=== PATIENT | female | born 1995 | race Caucasian/White ===

== ENCOUNTER → 2021-02-16 14:12 | Outpatient (CLI) | payer OTHER, SELFPAY ==
[2021-02-16 16:16] LABS: COVID19 -Nasal RAPID Negative (Negative)
== END ==
PROVIDERS: Visit Provider Physician Assistant
DX: Z20.822 Contact with and (suspected) exposure to COVID-19 (principal)
CPT/HCPCS: 87635

== ENCOUNTER 2021-02-19 10:44 | Day surgery (SDC) | payer OTHER, SELFPAY ==
[2021-02-19] VITALS (9 sets, daily range): BP systolic 120–143; BP diastolic 62–93; PULSE 63–124; RESP 9–18; TEMP 36.6–36.9; O2SAT 98–100; BMI 25.0
--- NOTE | 2021-02-19 10:57 | PM.PREOP ---
Pre-operative Note COVID-19 COVID-19 status: Negative Result date/Date tested (Pos, Neg/Pending): 02/16/21 Interval Note History & Physical reviewed/Exam performed by Physician: Yes Changes to H&P: No
--- NOTE | 2021-02-19 10:57 | PM.HP.1 ---
History of Present Illness History of Present Illness Date Patient Seen: 02/19/21 Time Patient Seen: 10:57 Chief complaint: SDC Narrative: 25-year-old female with a history of chronic tonsillitis and recurrence stones along with throat pain, presents for tonsillectomy and possible adenoidectomy. She was last seen by Dr. Bill jackson in clinic 01/14/2021, denies interval changes such as cough, cold, or fever. Meds Home Medications and Allergies Home Medications Medication Instructions Recorded Confirmed Type fexofenadine [Allergy Relief 180 mg PO DAILY 02/18/21 02/18/21 History (fexofenadine)] norgestimate-ethinyl estradiol 1 tab PO DAILY 02/18/21 02/18/21 History [Tri-Sprintec (28)] Allergies Allergy/AdvReac Type Severity Reaction Status Date / Time loratadine AdvReac Intermediate Rash Verified 02/19/21 10:25 Review of Systems Review of Systems ROS: Yes All systems reviewed with the patient and are negative except as otherwise documented Exam Narrative Exam Narrative: Well-developed well-nourished female. Heart regular rate and rhythm without murmur, lungs clear to auscultation bilaterally Assessment & Plan Assessment & Plan narrative: Assessment: Chronic tonsillitis, tonsil stones, throat pain Plan: Following discussion of the material risks benefits complications and alternatives the patient elected to proceed with tonsillectomy and possible adenoidectomy as outpatient.
--- NOTE | 2021-02-19 11:00 | PM.OP.1 ---
Operative Date/Time/Diagnoses Date of procedure: 02/19/21 Time of procedure: 12:41 Pre-op diagnosis: Chronic tonsillitis, tonsil stones, throat pain Post-op diagnosis: same (Mild adenoid hypertrophy) Procedure & Clinicians Procedure: Tonsillectomy and adenoidectomy Same procedure as scheduled: Yes Indications: 25-year-old female with the above diagnoses incompletely managed with medical therapy presents for the above procedures. Following discussion of the material risks benefits complications and alternatives, she elected to proceed. Surgeon: Kaden Porter Click Yes if Unassisted: Yes Anesthesia Type: General and Local Operative Notes Findings: Intact palate, single uvula, 2+ tonsils with debris, friable, 1-2+ adenoids Closure Type: not applicable Specimen(s): none sent Estimated Blood Loss (mL): 20 Blood products transfused: none Procedure in detail: Following identification and confirmation of consent the patient was brought to the operating room suite and placed in the supine position. General endotracheal anesthesia was administered. A head wrap, shoulder roll, and mouth gag were placed and a red rubber catheter was inserted through the nostril and out the mouth to retract the soft palate. Partially obstructive adenoid tissue was ablated with suction electrocautery on a setting of 40, without injury to the eustachian tube orifices or choana. The left tonsil was retracted medially and suction electrocautery on a setting of 30 was used to dissect the tonsil in a subcapsular plane, followed by hemostasis with the same. This process was repeated on the right side with identical findings. The tonsillar fossae were superficially infiltrated bilaterally with a 1:1 mixture of 1% lidocaine 1 100,000 epinephrine and 0.25% Marcaine 1 to [id number] epinephrine. Mouth gag and rubber catheter were removed and the patient was extubated in the operating room and taken to the recovery room in stable condition without known complication. Complications: none Post-operative Condition: stable Disposition: same day surgery Plan for aftercare: Push fluids, 4 L daily if possible, soft diet 2 weeks, alternate Tylenol and Advil for baseline pain control, oxycodone for breakthrough pain
[2021-02-19] MEDS: LACTATED RINGERS 1,000 ML 42 ML IV (11:31)
--- NOTE | 2021-02-19 12:18 | SUR.OPER ---
Supine on padded OR bed, head on pillow, RIGHT AARM SECURED AT SIDE,LEFT ARM SECURED ON ARMBOARD., legs uncrossed, safety belt at thigh, tape over blanket over lower legs.
[2021-02-19] MEDS: LIDOCAINE 1% W/EPI 20 ML INJ (12:24)
[2021-02-19] MEDS: BUPIVACAINE 0.25% W/ EPI (PF) 10 ML VIAL 20 ML INJ (12:25)
[2021-02-19] MEDS: fentaNYL 100 MCG/2 ML INJ IV (13:05)
[2021-02-19] MEDS: OXYCODONE IR 5 MG TABLET PO ×2 (13:16→13:40)
== END 2021-02-19 13:50 | disposition home or self-care (01) ==
PROVIDERS: Referring Provider Otolaryngology; Visit Provider Otolaryngology
PROC: (CPT 42821; principal; 2021-02-19 11:45)
DX: J35.01 Chronic tonsillitis (principal); J35.8 Other chronic diseases of tonsils and adenoids
CPT/HCPCS: 42821; 81025; J1100; J2250; J2405; J2704; J3010

== ENCOUNTER 2022-02-25 07:30 | Outpatient (RCR) | payer OTHER, SELFPAY ==
--- NOTE | 2021-11-25 11:12 | PT.OIE ---
Current Diagnoses Pain in right shoulder (11/25/21) Other specified disorders of muscle (11/25/21) Abnormal posture (11/25/21) Past Medical History (Last Updated 02/19/21 @ 11:21 by Pauline Alford RN) History of removal of cyst (~2007) History of removal of cyst (~2012) [place] teeth removed (~2011) Past Surgical History (Last Updated 02/19/21 @ 11:22 by Pauline Alford RN) History of removal of cyst (~2007) History of removal of cyst (~2012) [place] teeth removed (~2011) Visit Care Team Role Provider Type Gary Nicole DO Attending Provider Non-Staff Family Provider Primary Care Provider Referring Provider Specialty: Medical Address: [address] [place] [address], [address], [address], [place], [address] Fax: Email: Physical Therapy Initial Evaluation PT-OP-A Visit Information Start: 11/18/21 07:35 Freq: Status: Active Protocol: Document 11/25/21 09:00 AMB (Rec: 11/25/21 10:50 AMB [id number]) Out-Patient Physical Therapy Visit Information Visit Information Visit Type Initial Evaluation Visit Start Time 09:00 Visit Stop Time 10:00 Total Visit Minutes 60 Visit Number 1 PT-OP-B Current Condition Start: 11/18/21 07:35 Freq: Status: Active Protocol: Document 11/25/21 09:07 AMB (Rec: 11/25/21 09:21 AMB [id number]) Current Condition History of Current Condition Onset Date January 2021 Current Complaints R scapular pain that radiates into neck and down arm History of Current Condition 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 Pain goes down the whole arm. Chiropractic helped, but now pain is coming back. Pain is worst along lateral aspect. Plays violin. RHD. Can feel arm/hand pain randomly, but when at computer or when at the jet. Bringing arm in towards the body seems to be somewhat relieving. Sharp pain, deniess numbness/tingling/ burning. Lidocaine patches, takes about a day for the pain to calm down after flying the jet. 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 Reaching/lifting/sleeping does not necessarily increase the pain. 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 PT-OP-J Posture/Palpation/Skin Start: 11/18/21 07:35 Freq: Status: Active Protocol: Document 11/25/21 09:00 AMB (Rec: 11/25/21 10:50 AMB [id number]) Posture Evaluation Comments Posture Comments Rounded shoulders and increased scapular winging on the right Palpation Assessment Location One Palpation Location R scapula Palpation Findings Spasm,Muscle Guarding, Tenderness,Trigger Point Palpation Details Trigger point over supraspinatus and infraspinatus that refer down the arm PT-OP-K Range of Motion Start: 11/18/21 07:35 Freq: Status: Active Protocol: Document 11/25/21 09:00 AMB (Rec: 11/25/21 10:50 AMB [id number]) Shoulder Goniometric Range of Motion Shoulder Left Active Shoulder ROM WFL Yes Testing Position Sitting Flexion 160 Abduction 180 Right Active Testing Position Sitting Flexion 145 Abduction 180 PT-OP-M Strength Start: 11/18/21 07:35 Freq: Status: Active Protocol: Document 11/25/21 09:00 AMB (Rec: 11/25/21 10:50 AMB [id number]) Shoulder Strength Shoulder Manual Muscle Testing Right Flexion 4+ Good+ Extension 5 Normal Abduction (C5) 4+ Good+ External Rotation 4+ Good+ Internal Rotation 4+ Good+ Left Flexion 5 Normal Extension 5 Normal Abduction (C5) 5 Normal External Rotation 5 Normal Internal Rotation 5 Normal Hand Benzene Worker/Pinch Strength Hand Dominance Hand Dominance Right Hand Strength Right Benzene Worker (lbs) 50 Left Benzene Worker (lbs) 50 PT-OP-Q Treatments Start: 11/18/21 07:35 Freq: Status: Active Protocol: Document 11/25/21 09:00 AMB (Rec: 11/25/21 10:50 AMB [id number]) Therapeutic Exercises Supine Exercises 1 Supine Exercise Name supine punch Reps/Minutes 10 Sidelying Exercises open book Reps/Minutes 10 Sitting Exercises levator scap stretch Reps/Minutes 30x2 Standing Exercises rows Resistance #3 t band Reps/Minutes 10 PT-OP-T Assessment and Plan Start: 11/18/21 07:35 Freq: Status: Active Protocol: Document 11/25/21 09:00 AMB (Rec: 11/25/21 11:09 AMB [id number]) Physical Therapy Assessment Rehab Potential Rehabilitation Potential Good Evaluation Complexity Number of Personal Factors/Comorbidities 0 Number of Body Systems Impaired 4 or More Clinical Presentation at Evaluation Stable Impairments Impairments Activity Tolerance,Pain, Posture,ROM Goals Two Impairment Pain Short Term Goal (STG) Lesley will sit at her desk for 30 minutes without an increase in her baseline pain. STG Duration 4 weeks Penitentiary Goal (LTG) Lesley will be independent with a HEP for scapular strengthening and stretching to manage her pain in the correction. LTG Duration 8 weeks One Impairment ROM Short Term Goal (STG) Lesley will improve her R shoulder AROM to 160 degrees. STG Duration 4 weeks Designer Goal (LTG) Lesley will have full R shoulder range without an increase in pain. LTG Duration 8 weeks Assessment Summary Assessment Lesley attends physical therapy with a 5 year history of right shoulder/scapular pain that radiates into her neck and down the ulnar aspect of her arm. She denies numbness/tingling, but does have scapular winging, forward shoulder posture, reduced ROM on the right. 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 She did have active trigger points and muscular tension throughout her right scapula and would benefit from physical therapy to improve her ROM, posture, strength, and ability to sit and work without pain. Physical Therapy Plan Frequency and Duration Frequency of Treatment 2x/Week Duration of Treatment 8 weeks Plan of Care Start Date 11/25/21 Plan of Care End Date 02/23/22 Therapeutic Interventions Therapeutic Interventions Home Exercise Program,Joint Mobilizations,Manual Therapy, Neuromuscular Re-education, Self-Care/Home Management, Therapeutic Activities, Therapeutic Exercises Modalities Cold Pack/Ice Massage,Electric Stimulation,Hot Packs, Ultrasound Next Visit Focus/Plan Next Note Type Treatment Note Next Visit Plan follow up on HEP: rows, open book, supine punch, levator scap stretch
--- NOTE | 2021-11-25 11:12 | PT.OPPOC ---
Physical, Occupational & Speech Therapy At [facility] Current Diagnoses Pain in right shoulder (11/25/21) Other specified disorders of muscle (11/25/21) Abnormal posture (11/25/21) Visit Care Team Role Provider Type Gary Nicole DO Attending Provider Non-Staff Family Provider Primary Care Provider Referring Provider Specialty: Medical Address: [address] [place] [address], [address], [address], [place], [address] Fax: Email: Plan Of Care PT-OP-T Assessment and Plan Start: 11/18/21 07:35 Freq: Status: Active Protocol: Document 11/25/21 09:00 AMB (Rec: 11/25/21 11:09 AMB [id number]) Physical Therapy Assessment Rehab Potential Rehabilitation Potential Good Evaluation Complexity Number of Personal Factors/Comorbidities 0 Number of Body Systems Impaired 4 or More Clinical Presentation at Evaluation Stable Impairments Impairments Activity Tolerance,Pain, Posture,ROM Goals Two Impairment Pain Short Term Goal (STG) Lesley will sit at her desk for 30 minutes without an increase in her baseline pain. STG Duration 4 weeks Benefit Director Goal (LTG) Lesley will be independent with a HEP for scapular strengthening and stretching to manage her pain in the residential. LTG Duration 8 weeks One Impairment ROM Short Term Goal (STG) Lesley will improve her R shoulder AROM to 160 degrees. STG Duration 4 weeks Benefit Director Goal (LTG) Lesley will have full R shoulder range without an increase in pain. LTG Duration 8 weeks Assessment Summary Assessment Lesley attends physical therapy with a 5 year history of right shoulder/scapular pain that radiates into her neck and down the ulnar aspect of her arm. She denies numbness/tingling, but does have scapular winging, forward shoulder posture, reduced ROM on the right. 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 She did have active trigger points and muscular tension throughout her right scapula and would benefit from physical therapy to improve her ROM, posture, strength, and ability to sit and work without pain. Physical Therapy Plan Frequency and Duration Frequency of Treatment 2x/Week Duration of Treatment 8 weeks Plan of Care Start Date 11/25/21 Plan of Care End Date 01/20/22 Therapeutic Interventions Therapeutic Interventions Home Exercise Program,Joint Mobilizations,Manual Therapy, Neuromuscular Re-education, Self-Care/Home Management, Therapeutic Activities, Therapeutic Exercises Modalities Cold Pack/Ice Massage,Electric Stimulation,Hot Packs, Ultrasound Next Visit Focus/Plan Next Note Type Treatment Note Next Visit Plan follow up on HEP: rows, open book, supine punch, levator scap stretch Plan of Care Dates Plan of Care Start Date 11/25/21 Plan of Care End Date 01/20/22 Electronically Signed by: Rowena Barrios, PT 11/25/21 1021 Please Sign and Return: I have reviewed this Plan of Care and certify that the skilled therapy services above are required to meet the patient?s needs. Physician Signature Date Printed Name and Credentials Clinical Instructor Signature Printed Name and Credentials
--- NOTE | 2021-12-09 14:18 | PT.OTN ---
Current Diagnoses Pain in right shoulder (12/09/21) Other specified disorders of muscle (12/09/21) Abnormal posture (12/09/21) Physical Therapy Treatment Note PT-OP-A Visit Information Start: 11/18/21 07:35 Freq: Status: Active Protocol: Document 12/09/21 09:00 AMB (Rec: 12/09/21 09:59 AMB [id number]) Out-Patient Physical Therapy Visit Information Visit Information Visit Type Treatment Note Visit Start Time 09:00 Visit Stop Time 09:45 Total Visit Minutes 45 Visit Number 2 PT-OP-B Current Condition Start: 11/18/21 07:35 Freq: Status: Active Protocol: Document 11/25/21 09:07 AMB (Rec: 11/25/21 09:21 AMB [id number]) Current Condition History of Current Condition Onset Date January 2021 Current Complaints R scapular pain that radiates into neck and down arm History of Current Condition 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 Pain goes down the whole arm. Chiropractic helped, but now pain is coming back. Pain is worst along lateral aspect. Plays violin. RHD. Can feel arm/hand pain randomly, but when at computer or when at the jet. Bringing arm in towards the body seems to be somewhat relieving. Sharp pain, deniess numbness/tingling/ burning. Lidocaine patches, takes about a day for the pain to calm down after flying the jet. 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 Reaching/lifting/sleeping does not necessarily increase the pain. 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 She has been on vacation though and is flying for the first time today. PT-OP-J Posture/Palpation/Skin Start: 11/18/21 07:35 Freq: Status: Active Protocol: Document 11/25/21 09:00 AMB (Rec: 11/25/21 10:50 AMB [id number]) Posture Evaluation Comments Posture Comments Rounded shoulders and increased scapular winging on the right Palpation Assessment Location One Palpation Location R scapula Palpation Findings Spasm,Muscle Guarding, Tenderness,Trigger Point Palpation Details Trigger point over supraspinatus and infraspinatus that refer down the arm PT-OP-K Range of Motion Start: 11/18/21 07:35 Freq: Status: Active Protocol: Document 11/25/21 09:00 AMB (Rec: 11/25/21 10:50 AMB [id number]) Shoulder Goniometric Range of Motion Shoulder Left Active Shoulder ROM WFL Yes Testing Position Sitting Flexion 160 Abduction 180 Right Active Testing Position Sitting Flexion 145 Abduction 180 PT-OP-M Strength Start: 11/18/21 07:35 Freq: Status: Active Protocol: Document 11/25/21 09:00 AMB (Rec: 11/25/21 10:50 AMB [id number]) Shoulder Strength Shoulder Manual Muscle Testing Right Flexion 4+ Good+ Extension 5 Normal Abduction (C5) 4+ Good+ External Rotation 4+ Good+ Internal Rotation 4+ Good+ Left Flexion 5 Normal Extension 5 Normal Abduction (C5) 5 Normal External Rotation 5 Normal Internal Rotation 5 Normal Hand Dining Car Waiter/Waitress/Pinch Strength Hand Dominance Hand Dominance Right Hand Strength Right Dining Car Waiter/Waitress (lbs) 50 Left Dining Car Waiter/Waitress (lbs) 50 PT-OP-Q Treatments Start: 11/18/21 07:35 Freq: Status: Active Protocol: Document 12/09/21 09:00 AMB (Rec: 12/09/21 14:17 AMB [id number]) Therapeutic Exercises Supine Exercises 1 Supine Exercise Name supine punch Reps/Minutes 10 Sidelying Exercises open book Reps/Minutes 10 Sitting Exercises levator scap stretch Reps/Minutes 30x2 Other Exercises 1 Other Exercise Name thread the needle Comments quadruped Manual Therapy Treatment Soft Tissue Mobilization 1 Body Location infraspinatus, suscapularis, rhomboids Mobilization Type Myofascial Release,Trigger Point Release Intensity/Depth Moderate Body Position Sidelying Joint Mobilizations 1 Joint scapulothoracic Direction all planes Grade III PT-OP-R Modalities Start: 12/09/21 14:17 Freq: Status: Active Protocol: Document 12/09/21 09:00 AMB (Rec: 12/09/21 14:18 AMB [id number]) Electric Stimulation Electric Stimulation Interferential Current (IFC) Body Location R scapula Duration (Minutes) 10 PT-OP-T Assessment and Plan Start: 11/18/21 07:35 Freq: Status: Active Protocol: Document 12/09/21 09:00 AMB (Rec: 12/09/21 14:17 AMB [id number]) Physical Therapy Assessment Assessment Summary Assessment Lesley had signficant tightness at subscapularis and TrP release did radiate pain down the arm. Recheck how her sx were after flying. Physical Therapy Plan Next Visit Focus/Plan Next Note Type Treatment Note Next Visit Plan follow up on HEP: rows, open book, supine punch, levator scap stretch- progress strengthening follow up on
--- NOTE | 2021-12-11 11:49 | PT.OTN ---
Current Diagnoses Pain in right shoulder (12/11/21) Other specified disorders of muscle (12/11/21) Abnormal posture (12/11/21) Physical Therapy Treatment Note PT-OP-A Visit Information Start: 11/18/21 07:35 Freq: Status: Active Protocol: Document 12/11/21 09:00 AMB (Rec: 12/11/21 09:21 AMB [id number]) Out-Patient Physical Therapy Visit Information Visit Information Visit Type Treatment Note Visit Start Time 09:00 Visit Stop Time 09:45 Total Visit Minutes 45 Visit Number 3 PT-OP-B Current Condition Start: 11/18/21 07:35 Freq: Status: Active Protocol: Document 11/25/21 09:07 AMB (Rec: 11/25/21 09:21 AMB [id number]) Current Condition History of Current Condition Onset Date January 2021 Current Complaints R scapular pain that radiates into neck and down arm History of Current Condition 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 Pain goes down the whole arm. Chiropractic helped, but now pain is coming back. Pain is worst along lateral aspect. Plays violin. RHD. Can feel arm/hand pain randomly, but when at computer or when at the jet. Bringing arm in towards the body seems to be somewhat relieving. Sharp pain, deniess numbness/tingling/ burning. Lidocaine patches, takes about a day for the pain to calm down after flying the jet. 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 Reaching/lifting/sleeping does not necessarily increase the pain. 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 PT-OP-J Posture/Palpation/Skin Start: 11/18/21 07:35 Freq: Status: Active Protocol: Document 11/25/21 09:00 AMB (Rec: 11/25/21 10:50 AMB [id number]) Posture Evaluation Comments Posture Comments Rounded shoulders and increased scapular winging on the right Palpation Assessment Location One Palpation Location R scapula Palpation Findings Spasm,Muscle Guarding, Tenderness,Trigger Point Palpation Details Trigger point over supraspinatus and infraspinatus that refer down the arm PT-OP-K Range of Motion Start: 11/18/21 07:35 Freq: Status: Active Protocol: Document 11/25/21 09:00 AMB (Rec: 11/25/21 10:50 AMB [id number]) Shoulder Goniometric Range of Motion Shoulder Left Active Shoulder ROM WFL Yes Testing Position Sitting Flexion 160 Abduction 180 Right Active Testing Position Sitting Flexion 145 Abduction 180 PT-OP-M Strength Start: 11/18/21 07:35 Freq: Status: Active Protocol: Document 11/25/21 09:00 AMB (Rec: 11/25/21 10:50 AMB [id number]) Shoulder Strength Shoulder Manual Muscle Testing Right Flexion 4+ Good+ Extension 5 Normal Abduction (C5) 4+ Good+ External Rotation 4+ Good+ Internal Rotation 4+ Good+ Left Flexion 5 Normal Extension 5 Normal Abduction (C5) 5 Normal External Rotation 5 Normal Internal Rotation 5 Normal Hand Area Supervisor/Pinch Strength Hand Dominance Hand Dominance Right Hand Strength Right Area Supervisor (lbs) 50 Left Area Supervisor (lbs) 50 PT-OP-Q Treatments Start: 11/18/21 07:35 Freq: Status: Active Protocol: Document 12/11/21 09:00 AMB (Rec: 12/11/21 11:48 AMB [id number]) Cardio Equipment Upper Body Ergometer (UBE) Duration (Minutes) 6 Other fwd backward Therapeutic Exercises Standing Exercises ER Standing Exercise Name t band Resistance #3 Reps/Minutes 2x10 shldr ext Standing Exercise Name t band Resistance #3 Reps/Minutes 2x10 rows Resistance #3 t band Reps/Minutes 10 Manual Therapy Treatment Soft Tissue Mobilization 1 Body Location infraspinatus, subscapularis, rhomboids Mobilization Type Myofascial Release,Trigger Point Release Intensity/Depth Moderate Body Position Sidelying PT-OP-R Modalities Start: 12/09/21 14:17 Freq: Status: Active Protocol: Document 12/11/21 09:00 AMB (Rec: 12/11/21 11:48 AMB [id number]) Electric Stimulation Electric Stimulation Interferential Current (IFC) Body Location R scapula Duration (Minutes) 15 Combined With Heat/Cold Hot Pack PT-OP-T Assessment and Plan Start: 11/18/21 07:35 Freq: Status: Active Protocol: Document 12/11/21 09:00 AMB (Rec: 12/11/21 11:48 AMB [id number]) Physical Therapy Assessment Goals Two Impairment Pain Short Term Goal (STG) Lesley will sit at her desk for 30 minutes without an increase in her baseline pain. STG Duration 4 weeks Maternal Child Nurse Goal (LTG) Lesley will be independent with a HEP for scapular strengthening and stretching to manage her pain in the [place]. LTG Duration 8 weeks One Impairment ROM Short Term Goal (STG) Lesley will improve her R shoulder AROM to 160 degrees. STG Duration 4 weeks Maternal Child Nurse Goal (LTG) Lesley will have full R shoulder range without an increase in pain. LTG Duration 8 weeks Assessment Summary Assessment Less tightness in scapular muscles, but continued TrP at rhomboids and infraspinatus today. Pt tolerated all exercises well, except for shoulder extension which radiated discomfort into her upper arm. Physical Therapy Plan Next Visit Focus/Plan Next Note Type Treatment Note Next Visit Plan follow up on HEP: rows, open book, supine punch, levator scap stretch- progress strengthening follow up on shoulder ER t band exercise
--- NOTE | 2021-12-16 11:35 | PT.OTN ---
Current Diagnoses Pain in right shoulder (12/16/21) Other specified disorders of muscle (12/16/21) Abnormal posture (12/16/21) Physical Therapy Treatment Note PT-OP-A Visit Information Start: 11/18/21 07:35 Freq: Status: Active Protocol: Document 12/16/21 08:16 AMB (Rec: 12/16/21 09:45 AMB [id number]) Out-Patient Physical Therapy Visit Information Visit Information Visit Type Treatment Note Visit Start Time 08:15 Visit Stop Time 09:00 Total Visit Minutes 45 Visit Number 4 PT-OP-B Current Condition Start: 11/18/21 07:35 Freq: Status: Active Protocol: Document 11/25/21 09:07 AMB (Rec: 11/25/21 09:21 AMB [id number]) Current Condition History of Current Condition Onset Date January 2021 Current Complaints R scapular pain that radiates into neck and down arm History of Current Condition 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 Pain goes down the whole arm. Chiropractic helped, but now pain is coming back. Pain is worst along lateral aspect. Plays violin. RHD. Can feel arm/hand pain randomly, but when at computer or when at the jet. Bringing arm in towards the body seems to be somewhat relieving. Sharp pain, deniess numbness/tingling/ burning. Lidocaine patches, takes about a day for the pain to calm down after flying the jet. 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 Reaching/lifting/sleeping does not necessarily increase the pain. 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 PT-OP-J Posture/Palpation/Skin Start: 11/18/21 07:35 Freq: Status: Active Protocol: Document 11/25/21 09:00 AMB (Rec: 11/25/21 10:50 AMB [id number]) Posture Evaluation Comments Posture Comments Rounded shoulders and increased scapular winging on the right Palpation Assessment Location One Palpation Location R scapula Palpation Findings Spasm,Muscle Guarding, Tenderness,Trigger Point Palpation Details Trigger point over supraspinatus and infraspinatus that refer down the arm PT-OP-K Range of Motion Start: 11/18/21 07:35 Freq: Status: Active Protocol: Document 11/25/21 09:00 AMB (Rec: 11/25/21 10:50 AMB [id number]) Shoulder Goniometric Range of Motion Shoulder Left Active Shoulder ROM WFL Yes Testing Position Sitting Flexion 160 Abduction 180 Right Active Testing Position Sitting Flexion 145 Abduction 180 PT-OP-M Strength Start: 11/18/21 07:35 Freq: Status: Active Protocol: Document 11/25/21 09:00 AMB (Rec: 11/25/21 10:50 AMB [id number]) Shoulder Strength Shoulder Manual Muscle Testing Right Flexion 4+ Good+ Extension 5 Normal Abduction (C5) 4+ Good+ External Rotation 4+ Good+ Internal Rotation 4+ Good+ Left Flexion 5 Normal Extension 5 Normal Abduction (C5) 5 Normal External Rotation 5 Normal Internal Rotation 5 Normal Hand Naturopathic Doctor/Pinch Strength Hand Dominance Hand Dominance Right Hand Strength Right Naturopathic Doctor (lbs) 50 Left Naturopathic Doctor (lbs) 50 PT-OP-Q Treatments Start: 11/18/21 07:35 Freq: Status: Active Protocol: Document 12/16/21 11:30 AMB (Rec: 12/16/21 11:34 AMB [id number]) Cardio Equipment Upper Body Ergometer (UBE) Duration (Minutes) 6 Other fwd backward Therapeutic Exercises Standing Exercises PNF diagonals Standing Exercise Name D1 and D2 extension Resistance #3 t band Reps/Minutes 2x10 ER Standing Exercise Name t band Resistance #3 Reps/Minutes 2x10 rows Resistance #3 t band Reps/Minutes 10 Manual Therapy Treatment Soft Tissue Mobilization 1 Body Location infraspinatus, subscapularis, rhomboids Mobilization Type Myofascial Release,Trigger Point Release Intensity/Depth Moderate Body Position Sidelying Joint Mobilizations 1 Joint scapulothoracic Direction all planes Grade III PT-OP-R Modalities Start: 12/09/21 14:17 Freq: Status: Active Protocol: Document 12/16/21 11:30 AMB (Rec: 12/16/21 11:34 AMB [id number]) Electric Stimulation Electric Stimulation Interferential Current (IFC) Body Location R scapula Duration (Minutes) 15 Combined With Heat/Cold Hot Pack PT-OP-T Assessment and Plan Start: 11/18/21 07:35 Freq: Status: Active Protocol: Document 12/16/21 08:16 AMB (Rec: 12/16/21 09:45 AMB [id number]) Physical Therapy Assessment Goals Two Impairment Pain Short Term Goal (STG) Lesley will sit at her desk for 30 minutes without an increase in her baseline pain. STG Duration 4 weeks Usp Goal (LTG) Lesley will be independent with a HEP for scapular strengthening and stretching to manage her pain in the [facility]. LTG Duration 8 weeks One Impairment ROM Short Term Goal (STG) Lesley will improve her R shoulder AROM to 160 degrees. STG Duration 4 weeks Heel Seat Laster Goal (LTG) Lesley will have full R shoulder range without an increase in pain. LTG Duration 8 weeks Assessment Summary Assessment Lesley is tolerating progression of exercises well. Continued to have TrP in infraspinatus, but with less radiation today. Physical Therapy Plan Next Visit Focus/Plan Next Note Type Treatment Note Next Visit Plan follow up on HEP: rows, open book, supine punch, levator scap stretch- progress strengthening follow up on shoulder ER t band exercise
--- NOTE | 2021-12-21 16:16 | PT.OTN ---
Current Diagnoses Pain in right shoulder (12/21/21) Other specified disorders of muscle (12/21/21) Abnormal posture (12/21/21) Physical Therapy Treatment Note PT-OP-A Visit Information Start: 11/18/21 07:35 Freq: Status: Active Protocol: Document 12/21/21 07:30 AMB (Rec: 12/21/21 08:20 AMB [id number]) Out-Patient Physical Therapy Visit Information Visit Information Visit Type Initial Evaluation Visit Start Time 07:30 Visit Stop Time 08:15 Total Visit Minutes 45 Visit Number 5 PT-OP-B Current Condition Start: 11/18/21 07:35 Freq: Status: Active Protocol: Document 11/25/21 09:07 AMB (Rec: 11/25/21 09:21 AMB [id number]) Current Condition History of Current Condition Onset Date January 2021 Current Complaints R scapular pain that radiates into neck and down arm History of Current Condition 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 Pain goes down the whole arm. Chiropractic helped, but now pain is coming back. Pain is worst along lateral aspect. Plays violin. RHD. Can feel arm/hand pain randomly, but when at computer or when at the jet. Bringing arm in towards the body seems to be somewhat relieving. Sharp pain, deniess numbness/tingling/ burning. Lidocaine patches, takes about a day for the pain to calm down after flying the jet. 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 Reaching/lifting/sleeping does not necessarily increase the pain. 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 PT-OP-J Posture/Palpation/Skin Start: 11/18/21 07:35 Freq: Status: Active Protocol: Document 11/25/21 09:00 AMB (Rec: 11/25/21 10:50 AMB [id number]) Posture Evaluation Comments Posture Comments Rounded shoulders and increased scapular winging on the right Palpation Assessment Location One Palpation Location R scapula Palpation Findings Spasm,Muscle Guarding, Tenderness,Trigger Point Palpation Details Trigger point over supraspinatus and infraspinatus that refer down the arm PT-OP-K Range of Motion Start: 11/18/21 07:35 Freq: Status: Active Protocol: Document 11/25/21 09:00 AMB (Rec: 11/25/21 10:50 AMB [id number]) Shoulder Goniometric Range of Motion Shoulder Left Active Shoulder ROM WFL Yes Testing Position Sitting Flexion 160 Abduction 180 Right Active Testing Position Sitting Flexion 145 Abduction 180 PT-OP-M Strength Start: 11/18/21 07:35 Freq: Status: Active Protocol: Document 11/25/21 09:00 AMB (Rec: 11/25/21 10:50 AMB [id number]) Shoulder Strength Shoulder Manual Muscle Testing Right Flexion 4+ Good+ Extension 5 Normal Abduction (C5) 4+ Good+ External Rotation 4+ Good+ Internal Rotation 4+ Good+ Left Flexion 5 Normal Extension 5 Normal Abduction (C5) 5 Normal External Rotation 5 Normal Internal Rotation 5 Normal Hand Land Law Examiner/Pinch Strength Hand Dominance Hand Dominance Right Hand Strength Right Land Law Examiner (lbs) 50 Left Land Law Examiner (lbs) 50 PT-OP-Q Treatments Start: 11/18/21 07:35 Freq: Status: Active Protocol: Document 12/21/21 07:30 AMB (Rec: 12/21/21 16:15 AMB [id number]) Cardio Equipment Upper Body Ergometer (UBE) Duration (Minutes) 6 Other fwd backward Therapeutic Exercises Standing Exercises 1 Standing Exercise Name ulnar nerve glides Reps/Minutes 10 PNF diagonals Standing Exercise Name D1 and D2 extension Resistance #3 t band Reps/Minutes 2x10 ER Standing Exercise Name t band Resistance #3 Reps/Minutes 2x10 rows Resistance #3 t band Reps/Minutes 10 Manual Therapy Treatment Soft Tissue Mobilization 1 Body Location infraspinatus, subscapularis, rhomboids Mobilization Type Myofascial Release,Trigger Point Release Intensity/Depth Moderate Body Position Sidelying Joint Mobilizations 1 Joint scapulothoracic Direction all planes Grade III PT-OP-R Modalities Start: 12/09/21 14:17 Freq: Status: Active Protocol: Document 12/21/21 07:30 AMB (Rec: 12/21/21 16:16 AMB [id number]) Electric Stimulation Electric Stimulation Interferential Current (IFC) Body Location R scapula Duration (Minutes) 15 Combined With Heat/Cold Hot Pack PT-OP-T Assessment and Plan Start: 11/18/21 07:35 Freq: Status: Active Protocol: Document 12/21/21 07:30 AMB (Rec: 12/21/21 16:15 AMB [id number]) Physical Therapy Assessment Goals Two Impairment Pain Short Term Goal (STG) Lesley will sit at her desk for 30 minutes without an increase in her baseline pain. 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 LTG Duration 8 weeks One Impairment ROM Short Term Goal (STG) Lesley will improve her R shoulder AROM to 160 degrees. STG Duration 4 weeks Sawmill Worker Goal (LTG) Lesley will have full R shoulder range without an increase in pain. LTG Duration 8 weeks Assessment Summary Assessment Lesley is doing well with exercise today. will need to follow up on ulnar nerve glides. Physical Therapy Plan Next Visit Focus/Plan Next Note Type Treatment Note Next Visit Plan follow up on HEP: rows, open book, supine punch, levator scap stretch- progress strengthening follow up on shoulder ER t band exercise
--- NOTE | 2021-12-23 15:15 | PT.OTN ---
Current Diagnoses Pain in right shoulder (12/23/21) Other specified disorders of muscle (12/23/21) Abnormal posture (12/23/21) Physical Therapy Treatment Note PT-OP-A Visit Information Start: 11/18/21 07:35 Freq: Status: Active Protocol: Document 12/23/21 07:30 AMB (Rec: 12/23/21 08:21 AMB [id number]) Out-Patient Physical Therapy Visit Information Visit Information Visit Type Treatment Note Visit Start Time 07:30 Visit Stop Time 08:15 Total Visit Minutes 45 Visit Number 6 PT-OP-B Current Condition Start: 11/18/21 07:35 Freq: Status: Active Protocol: Document 11/25/21 09:07 AMB (Rec: 11/25/21 09:21 AMB [id number]) Current Condition History of Current Condition Onset Date January 2021 Current Complaints R scapular pain that radiates into neck and down arm History of Current Condition 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 Pain goes down the whole arm. Chiropractic helped, but now pain is coming back. Pain is worst along lateral aspect. Plays violin. RHD. Can feel arm/hand pain randomly, but when at computer or when at the jet. Bringing arm in towards the body seems to be somewhat relieving. Sharp pain, deniess numbness/tingling/ burning. Lidocaine patches, takes about a day for the pain to calm down after flying the jet. 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 Reaching/lifting/sleeping does not necessarily increase the pain. 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 Subjective Start: 11/18/21 07:35 Freq: Status: Active Protocol: Document 12/23/21 07:30 AMB (Rec: 12/23/21 08:21 AMB [id number]) OP-PT Subjective Patient Comments Patient Comments Pt woke up with some nerve tension in my elbow PT-OP-J Posture/Palpation/Skin Start: 11/18/21 07:35 Freq: Status: Active Protocol: Document 11/25/21 09:00 AMB (Rec: 11/25/21 10:50 AMB [id number]) Posture Evaluation Comments Posture Comments Rounded shoulders and increased scapular winging on the right Palpation Assessment Location One Palpation Location R scapula Palpation Findings Spasm,Muscle Guarding, Tenderness,Trigger Point Palpation Details Trigger point over supraspinatus and infraspinatus that refer down the arm PT-OP-K Range of Motion Start: 11/18/21 07:35 Freq: Status: Active Protocol: Document 11/25/21 09:00 AMB (Rec: 11/25/21 10:50 AMB [id number]) Shoulder Goniometric Range of Motion Shoulder Left Active Shoulder ROM WFL Yes Testing Position Sitting Flexion 160 Abduction 180 Right Active Testing Position Sitting Flexion 145 Abduction 180 PT-OP-M Strength Start: 11/18/21 07:35 Freq: Status: Active Protocol: Document 11/25/21 09:00 AMB (Rec: 11/25/21 10:50 AMB [id number]) Shoulder Strength Shoulder Manual Muscle Testing Right Flexion 4+ Good+ Extension 5 Normal Abduction (C5) 4+ Good+ External Rotation 4+ Good+ Internal Rotation 4+ Good+ Left Flexion 5 Normal Extension 5 Normal Abduction (C5) 5 Normal External Rotation 5 Normal Internal Rotation 5 Normal Hand Appraiser Timber/Pinch Strength Hand Dominance Hand Dominance Right Hand Strength Right Appraiser Timber (lbs) 50 Left Appraiser Timber (lbs) 50 PT-OP-Q Treatments Start: 11/18/21 07:35 Freq: Status: Active Protocol: Document 12/23/21 07:30 AMB (Rec: 12/23/21 08:21 AMB [id number]) Cardio Equipment Upper Body Ergometer (UBE) Duration (Minutes) 6 Other fwd backward Therapeutic Exercises Sidelying Exercises open book Reps/Minutes 10 Sitting Exercises levator scap stretch Reps/Minutes 30x2 Other Exercises 1 Other Exercise Name thread the needle Comments quadruped Manual Therapy Treatment Soft Tissue Mobilization 1 Body Location infraspinatus, subscapularis, rhomboids Mobilization Type Myofascial Release,Trigger Point Release Intensity/Depth Moderate Body Position Sidelying Joint Mobilizations 1 Joint scapulothoracic Direction all planes Grade III PT-OP-R Modalities Start: 12/09/21 14:17 Freq: Status: Active Protocol: Document 12/21/21 07:30 AMB (Rec: 12/21/21 16:16 AMB [id number]) Electric Stimulation Electric Stimulation Interferential Current (IFC) Body Location R scapula Duration (Minutes) 15 Combined With Heat/Cold Hot Pack PT-OP-T Assessment and Plan Start: 11/18/21 07:35 Freq: Status: Active Protocol: Document 12/23/21 07:30 AMB (Rec: 12/23/21 08:21 [facility] [id number]) Physical Therapy Assessment Goals Two Impairment Pain Short Term Goal (STG) Lesley will sit at her desk for 30 minutes without an increase in her baseline pain. 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 LTG Duration 8 weeks One Impairment ROM Short Term Goal (STG) Lesley will improve her R shoulder AROM to 160 degrees. STG Duration 4 weeks Cementer Machine Applicator Goal (LTG) Lesley will have full R shoulder range without an increase in pain. LTG Duration 8 weeks Assessment Summary Assessment Lesley had extra discomfort and stiffness in her scapula and posterior shoulder today, discussed set up of typing and sleeping today. Physical Therapy Plan Next Visit Focus/Plan Next Note Type Treatment Note Next Visit Plan follow up on HEP: rows, open book, supine punch, levator scap stretch- progress strengthening follow up on shoulder ER t band exercise
--- NOTE | 2021-12-28 09:43 | PT.OTN ---
Current Diagnoses Pain in right shoulder (12/28/21) Other specified disorders of muscle (12/28/21) Abnormal posture (12/28/21) Physical Therapy Treatment Note PT-OP-A Visit Information Start: 11/18/21 07:35 Freq: Status: Active Protocol: Document 12/28/21 07:30 AMB (Rec: 12/28/21 08:33 AMB [id number]) Out-Patient Physical Therapy Visit Information Visit Information Visit Type Treatment Note Visit Start Time 07:30 Visit Stop Time 08:15 Total Visit Minutes 45 Visit Number 7 PT-OP-B Current Condition Start: 11/18/21 07:35 Freq: Status: Active Protocol: Document 11/25/21 09:07 AMB (Rec: 11/25/21 09:21 AMB [id number]) Current Condition History of Current Condition Onset Date January 2021 Current Complaints R scapular pain that radiates into neck and down arm History of Current Condition 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 Pain goes down the whole arm. Chiropractic helped, but now pain is coming back. Pain is worst along lateral aspect. Plays violin. RHD. Can feel arm/hand pain randomly, but when at computer or when at the jet. Bringing arm in towards the body seems to be somewhat relieving. Sharp pain, deniess numbness/tingling/ burning. Lidocaine patches, takes about a day for the pain to calm down after flying the jet. 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 Reaching/lifting/sleeping does not necessarily increase the pain. 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 Was able to spend a lot of time typing on the computer PT-OP-J Posture/Palpation/Skin Start: 11/18/21 07:35 Freq: Status: Active Protocol: Document 11/25/21 09:00 AMB (Rec: 11/25/21 10:50 AMB [id number]) Posture Evaluation Comments Posture Comments Rounded shoulders and increased scapular winging on the right Palpation Assessment Location One Palpation Location R scapula Palpation Findings Spasm,Muscle Guarding, Tenderness,Trigger Point Palpation Details Trigger point over supraspinatus and infraspinatus that refer down the arm PT-OP-K Range of Motion Start: 11/18/21 07:35 Freq: Status: Active Protocol: Document 11/25/21 09:00 AMB (Rec: 11/25/21 10:50 AMB [id number]) Shoulder Goniometric Range of Motion Shoulder Left Active Shoulder ROM WFL Yes Testing Position Sitting Flexion 160 Abduction 180 Right Active Testing Position Sitting Flexion 145 Abduction 180 PT-OP-M Strength Start: 11/18/21 07:35 Freq: Status: Active Protocol: Document 11/25/21 09:00 AMB (Rec: 11/25/21 10:50 AMB [id number]) Shoulder Strength Shoulder Manual Muscle Testing Right Flexion 4+ Good+ Extension 5 Normal Abduction (C5) 4+ Good+ External Rotation 4+ Good+ Internal Rotation 4+ Good+ Left Flexion 5 Normal Extension 5 Normal Abduction (C5) 5 Normal External Rotation 5 Normal Internal Rotation 5 Normal Hand Picture Enlarger/Pinch Strength Hand Dominance Hand Dominance Right Hand Strength Right Picture Enlarger (lbs) 50 Left Picture Enlarger (lbs) 50 PT-OP-Q Treatments Start: 11/18/21 07:35 Freq: Status: Active Protocol: Document 12/28/21 07:30 AMB (Rec: 12/28/21 09:43 AMB [id number]) Cardio Equipment Upper Body Ergometer (UBE) Duration (Minutes) 7 Other fwd backward Therapeutic Exercises Sidelying Exercises open book Reps/Minutes 10 Standing Exercises doorway pec stretch Comments time spent modifying to avoid nerve sx rows Resistance #3 t band Reps/Minutes 2x10 Manual Therapy Treatment Soft Tissue Mobilization 1 Body Location infraspinatus, subscapularis, rhomboids Mobilization Type Myofascial Release,Trigger Point Release Intensity/Depth Moderate Body Position Sidelying Comments with shoulder PROM working on flexion PT-OP-R Modalities Start: 12/09/21 14:17 Freq: Status: Active Protocol: Document 12/28/21 07:30 AMB (Rec: 12/28/21 09:43 AMB [id number]) Electric Stimulation Electric Stimulation Interferential Current (IFC) Body Location R scapula Duration (Minutes) 15 Combined With Heat/Cold Hot Pack PT-OP-T Assessment and Plan Start: 11/18/21 07:35 Freq: Status: Active Protocol: Document 12/28/21 07:30 AMB (Rec: 12/28/21 09:43 AMB [id number]) Physical Therapy Assessment Goals Two Impairment Pain Short Term Goal (STG) Lesley will sit at her desk for 30 minutes without an increase in her baseline pain. STG Duration 4 weeks Manager Custom Goal (LTG) Lesley will be independent with a HEP for scapular strengthening and stretching to manage her pain in the manager long term care. LTG Duration 8 weeks One Impairment ROM Short Term Goal (STG) Lesley will improve her R shoulder AROM to 160 degrees. STG Duration 4 weeks Custodial Goal (LTG) Lesley will have full R shoulder range without an increase in pain. LTG Duration 8 weeks Assessment Summary Assessment Progressed HEP with corner pec stretch, modified to avoid arm tingling. Physical Therapy Plan Next Visit Focus/Plan Next Note Type Treatment Note Next Visit Plan follow up on HEP: rows, open book, supine punch, levator scap stretch- progress strengthening follow up on shoulder ER t band exercise
--- NOTE | 2021-12-30 10:04 | PT.OTN ---
Current Diagnoses Pain in right shoulder (12/30/21) Other specified disorders of muscle (12/30/21) Abnormal posture (12/30/21) Physical Therapy Treatment Note PT-OP-A Visit Information Start: 11/18/21 07:35 Freq: Status: Active Protocol: Document 12/30/21 07:30 AMB (Rec: 12/30/21 16:01 AMB [id number]) Out-Patient Physical Therapy Visit Information Visit Information Visit Type Treatment Note Visit Start Time 07:30 Visit Stop Time 08:15 Total Visit Minutes 45 Visit Number 8 PT-OP-B Current Condition Start: 11/18/21 07:35 Freq: Status: Active Protocol: Document 11/25/21 09:07 AMB (Rec: 11/25/21 09:21 AMB [id number]) Current Condition History of Current Condition Onset Date January 2021 Current Complaints R scapular pain that radiates into neck and down arm History of Current Condition 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 Pain goes down the whole arm. Chiropractic helped, but now pain is coming back. Pain is worst along lateral aspect. Plays violin. RHD. Can feel arm/hand pain randomly, but when at computer or when at the jet. Bringing arm in towards the body seems to be somewhat relieving. Sharp pain, deniess numbness/tingling/ burning. Lidocaine patches, takes about a day for the pain to calm down after flying the jet. 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 Reaching/lifting/sleeping does not necessarily increase the pain. 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 Subjective Start: 11/18/21 07:35 Freq: Status: Active Protocol: Document 12/30/21 07:30 AMB (Rec: 01/03/22 10:04 AMB [id number]) OP-PT Subjective Patient Comments Patient Comments Flew 2x since last appt, can feel it a little going into the arm, but has been very mild even with longer flight times PT-OP-J Posture/Palpation/Skin Start: 11/18/21 07:35 Freq: Status: Active Protocol: Document 11/25/21 09:00 AMB (Rec: 11/25/21 10:50 AMB [id number]) Posture Evaluation Comments Posture Comments Rounded shoulders and increased scapular winging on the right Palpation Assessment Location One Palpation Location R scapula Palpation Findings Spasm,Muscle Guarding, Tenderness,Trigger Point Palpation Details Trigger point over supraspinatus and infraspinatus that refer down the arm PT-OP-K Range of Motion Start: 11/18/21 07:35 Freq: Status: Active Protocol: Document 11/25/21 09:00 AMB (Rec: 11/25/21 10:50 AMB [id number]) Shoulder Goniometric Range of Motion Shoulder Left Active Shoulder ROM WFL Yes Testing Position Sitting Flexion 160 Abduction 180 Right Active Testing Position Sitting Flexion 145 Abduction 180 PT-OP-M Strength Start: 11/18/21 07:35 Freq: Status: Active Protocol: Document 11/25/21 09:00 AMB (Rec: 11/25/21 10:50 AMB [id number]) Shoulder Strength Shoulder Manual Muscle Testing Right Flexion 4+ Good+ Extension 5 Normal Abduction (C5) 4+ Good+ External Rotation 4+ Good+ Internal Rotation 4+ Good+ Left Flexion 5 Normal Extension 5 Normal Abduction (C5) 5 Normal External Rotation 5 Normal Internal Rotation 5 Normal Hand Black Topper/Pinch Strength Hand Dominance Hand Dominance Right Hand Strength Right Black Topper (lbs) 50 Left Black Topper (lbs) 50 PT-OP-Q Treatments Start: 11/18/21 07:35 Freq: Status: Active Protocol: Document 12/30/21 07:30 AMB (Rec: 01/03/22 10:04 AMB [id number]) Cardio Equipment Upper Body Ergometer (UBE) Duration (Minutes) 7 Other fwd backward Therapeutic Exercises Sidelying Exercises open book Reps/Minutes 10 Comments modified to avoid sx Sitting Exercises levator scap stretch Reps/Minutes 30x2 Standing Exercises doorway pec stretch Reps/Minutes 30x3 Comments time spent modifying to avoid nerve sx ER Standing Exercise Name t band Resistance #3 Reps/Minutes 2x10 rows Resistance #3 t band Reps/Minutes 2x10 Other Exercises 1 Other Exercise Name thread the needle Comments quadruped Manual Therapy Treatment Soft Tissue Mobilization 1 Body Location infraspinatus, subscapularis, rhomboids Mobilization Type Myofascial Release,Trigger Point Release Intensity/Depth Moderate Body Position Sidelying Comments with shoulder PROM working on flexion PT-OP-R Modalities Start: 12/09/21 14:17 Freq: Status: Active Protocol: Document 12/28/21 07:30 AMB (Rec: 12/28/21 09:43 AMB [id number]) Electric Stimulation Electric Stimulation Interferential Current (IFC) Body Location R scapula Duration (Minutes) 15 Combined With Heat/Cold Hot Pack PT-OP-T Assessment and Plan Start: 11/18/21 07:35 Freq: Status: Active Protocol: Document 12/30/21 07:30 AMB (Rec: 01/03/22 10:04 AMB [id number]) Physical Therapy Assessment Goals Two Impairment Pain Short Term Goal (STG) Lesley will sit at her desk for 30 minutes without an increase in her baseline pain. STG Duration 4 weeks Residential Goal (LTG) Lesley will be independent with a HEP for scapular strengthening and stretching to manage her pain in the group home. LTG Duration 8 weeks One Impairment ROM Short Term Goal (STG) Lesley will improve her R shoulder AROM to 160 degrees. STG Duration 4 weeks Residential Goal (LTG) Lesley will have full R shoulder range without an increase in pain. LTG Duration 8 weeks Assessment Summary Assessment Lesley's biggest issues are more the radiating discomfort pieter with horizontal adduction rather than the scapular pain that she first attended with. Discussed importance of stretching anterior musculature to avoid compression anteriorly. Physical Therapy Plan Next Visit Focus/Plan Next Note Type Treatment Note Next Visit Plan follow up on HEP: rows, open book, supine punch, levator scap stretch- progress strengthening follow up on shoulder ER t band exercise
--- NOTE | 2022-01-04 15:43 | PT.OTN ---
Current Diagnoses Pain in right shoulder (01/04/22) Other specified disorders of muscle (01/04/22) Abnormal posture (01/04/22) Physical Therapy Treatment Note PT-OP-A Visit Information Start: 11/18/21 07:35 Freq: Status: Active Protocol: Document 01/04/22 08:07 AMB (Rec: 01/04/22 09:50 AMB [id number]) Out-Patient Physical Therapy Visit Information Visit Information Visit Type Treatment Note Visit Start Time 08:15 Visit Stop Time 09:00 Total Visit Minutes 45 Visit Number 9 PT-OP-B Current Condition Start: 11/18/21 07:35 Freq: Status: Active Protocol: Document 11/25/21 09:07 AMB (Rec: 11/25/21 09:21 AMB [id number]) Current Condition History of Current Condition Onset Date January 2021 Current Complaints R scapular pain that radiates into neck and down arm History of Current Condition 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 Pain goes down the whole arm. Chiropractic helped, but now pain is coming back. Pain is worst along lateral aspect. Plays violin. RHD. Can feel arm/hand pain randomly, but when at computer or when at the jet. Bringing arm in towards the body seems to be somewhat relieving. Sharp pain, deniess numbness/tingling/ burning. Lidocaine patches, takes about a day for the pain to calm down after flying the jet. 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 Reaching/lifting/sleeping does not necessarily increase the pain. 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 PT-OP-J Posture/Palpation/Skin Start: 11/18/21 07:35 Freq: Status: Active Protocol: Document 11/25/21 09:00 AMB (Rec: 11/25/21 10:50 AMB [id number]) Posture Evaluation Comments Posture Comments Rounded shoulders and increased scapular winging on the right Palpation Assessment Location One Palpation Location R scapula Palpation Findings Spasm,Muscle Guarding, Tenderness,Trigger Point Palpation Details Trigger point over supraspinatus and infraspinatus that refer down the arm PT-OP-K Range of Motion Start: 11/18/21 07:35 Freq: Status: Active Protocol: Document 11/25/21 09:00 AMB (Rec: 11/25/21 10:50 AMB [id number]) Shoulder Goniometric Range of Motion Shoulder Left Active Shoulder ROM WFL Yes Testing Position Sitting Flexion 160 Abduction 180 Right Active Testing Position Sitting Flexion 145 Abduction 180 PT-OP-M Strength Start: 11/18/21 07:35 Freq: Status: Active Protocol: Document 11/25/21 09:00 AMB (Rec: 11/25/21 10:50 AMB [id number]) Shoulder Strength Shoulder Manual Muscle Testing Right Flexion 4+ Good+ Extension 5 Normal Abduction (C5) 4+ Good+ External Rotation 4+ Good+ Internal Rotation 4+ Good+ Left Flexion 5 Normal Extension 5 Normal Abduction (C5) 5 Normal External Rotation 5 Normal Internal Rotation 5 Normal Hand Manager Of Data/Pinch Strength Hand Dominance Hand Dominance Right Hand Strength Right Manager Of Data (lbs) 50 Left Manager Of Data (lbs) 50 PT-OP-Q Treatments Start: 11/18/21 07:35 Freq: Status: Active Protocol: Document 01/04/22 08:15 AMB (Rec: 01/04/22 11:10 AMB [id number]) Cardio Equipment Upper Body Ergometer (UBE) Duration (Minutes) 7 Other fwd backward Therapeutic Exercises Sidelying Exercises open book Reps/Minutes 10 Comments modified to avoid sx Sitting Exercises 1 Sitting Exercise Name ulnar n glide Reps/Minutes 10 Standing Exercises ER Standing Exercise Name t band Resistance #3 Reps/Minutes 2x10 rows Resistance #3 t band Reps/Minutes 2x10 Other Exercises 2 Other Exercise Name quadruped UE flexion Reps/Minutes 10 1 Other Exercise Name thread the needle Comments quadruped, with bent elbow PT-OP-R Modalities Start: 12/09/21 14:17 Freq: Status: Active Protocol: Document 01/04/22 08:15 AMB (Rec: 01/04/22 15:43 AMB [id number]) Electric Stimulation Electric Stimulation Interferential Current (IFC) Body Location R scapula Duration (Minutes) 15 Combined With Heat/Cold Hot Pack PT-OP-T Assessment and Plan Start: 11/18/21 07:35 Freq: Status: Active Protocol: Document 01/04/22 08:15 AMB (Rec: 01/04/22 11:10 AMB [id number]) Physical Therapy Assessment Goals Two Impairment Pain Short Term Goal (STG) Lesley will sit at her desk for 30 minutes without an increase in her baseline pain. STG Duration 4 weeks Shoe Dresser Goal (LTG) Lesley will be independent with a HEP for scapular strengthening and stretching to manage her pain in the oil heaterman. LTG Duration 8 weeks One Impairment ROM Short Term Goal (STG) Lesley will improve her R shoulder AROM to 160 degrees. STG Duration 4 weeks Shoe Dresser Goal (LTG) Lesley will have full R shoulder range without an increase in pain. LTG Duration 8 weeks Assessment Summary Assessment Pt noting more radiating discomfort in elbow and into hand in ulnar distribution, considering cubital tunnel since scapular pain is improving well, but elbow and distal numbness and tingling is continuing. Physical Therapy Plan Next Visit Focus/Plan Next Note Type Progress Note Next Visit Plan Pt going on detachment next week, reassess goals
--- NOTE | 2022-01-06 14:19 | PT.OTN ---
Current Diagnoses Pain in right shoulder (01/06/22) Other specified disorders of muscle (01/06/22) Abnormal posture (01/06/22) Physical Therapy Treatment Note PT-OP-A Visit Information Start: 11/18/21 07:35 Freq: Status: Active Protocol: Document 01/06/22 07:30 AMB (Rec: 01/06/22 08:58 AMB [id number]) Out-Patient Physical Therapy Visit Information Visit Information Visit Type Treatment Note Visit Start Time 07:30 Visit Stop Time 08:15 Total Visit Minutes 45 Visit Number 10 PT-OP-B Current Condition Start: 11/18/21 07:35 Freq: Status: Active Protocol: Document 11/25/21 09:07 AMB (Rec: 11/25/21 09:21 AMB [id number]) Current Condition History of Current Condition Onset Date January 2021 Current Complaints R scapular pain that radiates into neck and down arm History of Current Condition 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 Pain goes down the whole arm. Chiropractic helped, but now pain is coming back. Pain is worst along lateral aspect. Plays violin. RHD. Can feel arm/hand pain randomly, but when at computer or when at the jet. Bringing arm in towards the body seems to be somewhat relieving. Sharp pain, deniess numbness/tingling/ burning. Lidocaine patches, takes about a day for the pain to calm down after flying the jet. 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 Reaching/lifting/sleeping does not necessarily increase the pain. 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 Flying yesterday was ok. PT-OP-J Posture/Palpation/Skin Start: 11/18/21 07:35 Freq: Status: Active Protocol: Document 11/25/21 09:00 AMB (Rec: 11/25/21 10:50 AMB [id number]) Posture Evaluation Comments Posture Comments Rounded shoulders and increased scapular winging on the right Palpation Assessment Location One Palpation Location R scapula Palpation Findings Spasm,Muscle Guarding, Tenderness,Trigger Point Palpation Details Trigger point over supraspinatus and infraspinatus that refer down the arm PT-OP-K Range of Motion Start: 11/18/21 07:35 Freq: Status: Active Protocol: Document 11/25/21 09:00 AMB (Rec: 11/25/21 10:50 AMB [id number]) Shoulder Goniometric Range of Motion Shoulder Left Active Shoulder ROM WFL Yes Testing Position Sitting Flexion 160 Abduction 180 Right Active Testing Position Sitting Flexion 145 Abduction 180 PT-OP-M Strength Start: 11/18/21 07:35 Freq: Status: Active Protocol: Document 11/25/21 09:00 AMB (Rec: 11/25/21 10:50 AMB [id number]) Shoulder Strength Shoulder Manual Muscle Testing Right Flexion 4+ Good+ Extension 5 Normal Abduction (C5) 4+ Good+ External Rotation 4+ Good+ Internal Rotation 4+ Good+ Left Flexion 5 Normal Extension 5 Normal Abduction (C5) 5 Normal External Rotation 5 Normal Internal Rotation 5 Normal Hand Grab Jack Worker/Pinch Strength Hand Dominance Hand Dominance Right Hand Strength Right Grab Jack Worker (lbs) 50 Left Grab Jack Worker (lbs) 50 PT-OP-Q Treatments Start: 11/18/21 07:35 Freq: Status: Active Protocol: Document 01/06/22 07:30 AMB (Rec: 01/06/22 14:19 AMB [id number]) Cardio Equipment Upper Body Ergometer (UBE) Duration (Minutes) 7 Other fwd backward Therapeutic Exercises Sitting Exercises 1 Sitting Exercise Name ulnar n glide Reps/Minutes 10 levator scap stretch Reps/Minutes 30x2 Manual Therapy Treatment Soft Tissue Mobilization 2 Body Location triceps forearm Mobilization Type Myofascial Release Taping 1 Body Location cubital tunnel Type of Tape Kinesio Tape Comments 2 I strips pull central to proximal/distal PT-OP-R Modalities Start: 12/09/21 14:17 Freq: Status: Active Protocol: Document 01/06/22 07:30 AMB (Rec: 01/06/22 14:19 AMB [id number]) Electric Stimulation Electric Stimulation Interferential Current (IFC) Body Location R scapula Duration (Minutes) 15 Combined With Heat/Cold Hot Pack PT-OP-T Assessment and Plan Start: 11/18/21 07:35 Freq: Status: Active Protocol: Document 01/06/22 07:30 AMB (Rec: 01/06/22 14:19 AMB [id number]) Physical Therapy Assessment Goals Two Impairment Pain Short Term Goal (STG) Lesley will sit at her desk for 30 minutes without an increase in her baseline pain. STG Duration MET Usp Goal (LTG) Lesley will be independent with a HEP for scapular strengthening and stretching to manage her pain in the materials planning analyst. LTG Duration MET One Impairment ROM Short Term Goal (STG) Lesley will improve her R shoulder AROM to 160 degrees. STG Duration 4 weeks Usp Goal (LTG) Lesley will have full R shoulder range without an increase in pain. LTG Duration 8 weeks Assessment Summary Assessment Pt has had a good recovery of her scapular pain, but is continuing to have triceps pain and intermittent pain in her wrist. We are concerned about compression of her ulnar nerve at the cubital tunnel given her violin history and the distribution of her tingling. She has been given ulnar glides and instructed in trying to avoid end range elbow flexion during sleep to help while she is on detachment and then she will return afterwards in January. Physical Therapy Plan Next Visit Focus/Plan Next Note Type Progress Note
--- NOTE | 2022-02-15 08:37 | PT.OPPOC ---
Physical, Occupational & Speech Therapy At [facility] Current Diagnoses Pain in right shoulder (02/15/22) Other specified disorders of muscle (02/15/22) Abnormal posture (02/15/22) Visit Care Team Role Provider Type Gary Nicole DO Attending Provider Non-Staff Family Provider Primary Care Provider Referring Provider Specialty: Medical Address: [address] [place] [address], [address], [address], [place], [address] Email: Plan Of Care PT-OP-T Assessment and Plan Start: 11/18/21 07:35 Freq: Status: Active Protocol: Document 02/15/22 07:30 AMB (Rec: 02/15/22 08:25 AMB [id number]) Physical Therapy Assessment Goals Two Impairment Pain Short Term Goal (STG) Lesley will sit at her desk for 30 minutes without an increase in her baseline pain. 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 LTG Duration MET One Impairment ROM Short Term Goal (STG) Lesley will improve her R shoulder AROM to 160 degrees. STG Duration equal to other side at 155 Half-Way Goal (LTG) Lesley will have full R shoulder range without an increase in pain. LTG Duration 8 weeks Assessment Summary Assessment Pt is feeling better after last 5 weeks off of PT. 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 Not as worried about the elbow now that pain seems to be very related to exercise and better when she does her HEP. Physical Therapy Plan Frequency and Duration Frequency of Treatment 2x/Week Duration of Treatment 4 weeks Plan of Care Start Date 02/15/22 Plan of Care End Date 03/15/22 Therapeutic Interventions Therapeutic Interventions Home Exercise Program,Joint Mobilizations,Manual Therapy, Neuromuscular Re-education, Self-Care/Home Management, Therapeutic Activities, Therapeutic Exercises Modalities Cold Pack/Ice Massage,Electric Stimulation,Hot Packs, Ultrasound Next Visit Focus/Plan Next Note Type Treatment Note Next Visit Plan Finalize HEP Plan of Care Dates Plan of Care Start Date 02/15/22 Plan of Care End Date 03/15/22 Electronically Signed by: Rowena Barrios, PT 02/16/22 0837 Please Sign and Return: I have reviewed this Plan of Care and certify that the skilled therapy services above are required to meet the patient?s needs. Physician Signature Date Printed Name and Credentials Clinical Instructor Signature Printed Name and Credentials
--- NOTE | 2022-02-15 08:38 | PT.OTN ---
Current Diagnoses Pain in right shoulder (02/15/22) Other specified disorders of muscle (02/15/22) Abnormal posture (02/15/22) Physical Therapy Treatment Note PT-OP-A Visit Information Start: 11/18/21 07:35 Freq: Status: Active Protocol: Document 02/15/22 07:30 AMB (Rec: 02/15/22 08:25 AMB [id number]) Out-Patient Physical Therapy Visit Information Visit Information Visit Type Progress Note Visit Start Time 07:30 Visit Stop Time 08:15 Total Visit Minutes 45 Visit Number 11 PT-OP-B Current Condition Start: 11/18/21 07:35 Freq: Status: Active Protocol: Document 11/25/21 09:07 AMB (Rec: 11/25/21 09:21 AMB [id number]) Current Condition History of Current Condition Onset Date January 2021 Current Complaints R scapular pain that radiates into neck and down arm History of Current Condition 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 Pain goes down the whole arm. Chiropractic helped, but now pain is coming back. Pain is worst along lateral aspect. Plays violin. RHD. Can feel arm/hand pain randomly, but when at computer or when at the jet. Bringing arm in towards the body seems to be somewhat relieving. Sharp pain, deniess numbness/tingling/ burning. Lidocaine patches, takes about a day for the pain to calm down after flying the jet. 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 Reaching/lifting/sleeping does not necessarily increase the pain. 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 She felt that when she was consistent with her exercises she had decreased sx . Did have a difficult time with pistol training, felt stronger on the left than the right. PT-OP-J Posture/Palpation/Skin Start: 11/18/21 07:35 Freq: Status: Active Protocol: Document 11/25/21 09:00 AMB (Rec: 11/25/21 10:50 AMB [id number]) Posture Evaluation Comments Posture Comments Rounded shoulders and increased scapular winging on the right Palpation Assessment Location One Palpation Location R scapula Palpation Findings Spasm,Muscle Guarding, Tenderness,Trigger Point Palpation Details Trigger point over supraspinatus and infraspinatus that refer down the arm PT-OP-K Range of Motion Start: 11/18/21 07:35 Freq: Status: Active Protocol: Document 11/25/21 09:00 AMB (Rec: 11/25/21 10:50 AMB [id number]) Shoulder Goniometric Range of Motion Shoulder Left Active Shoulder ROM WFL Yes Testing Position Sitting Flexion 160 Abduction 180 Right Active Testing Position Sitting Flexion 145 Abduction 180 PT-OP-M Strength Start: 11/18/21 07:35 Freq: Status: Active Protocol: Document 11/25/21 09:00 AMB (Rec: 11/25/21 10:50 AMB [id number]) Shoulder Strength Shoulder Manual Muscle Testing Right Flexion 4+ Good+ Extension 5 Normal Abduction (C5) 4+ Good+ External Rotation 4+ Good+ Internal Rotation 4+ Good+ Left Flexion 5 Normal Extension 5 Normal Abduction (C5) 5 Normal External Rotation 5 Normal Internal Rotation 5 Normal Hand Nba Player/Pinch Strength Hand Dominance Hand Dominance Right Hand Strength Right Nba Player (lbs) 50 Left Nba Player (lbs) 50 PT-OP-Q Treatments Start: 11/18/21 07:35 Freq: Status: Active Protocol: Document 02/15/22 07:30 AMB (Rec: 02/15/22 09:46 AMB [id number]) Therapeutic Exercises Sidelying Exercises open book Reps/Minutes 10 Comments modified to avoid sx Standing Exercises PNF diagonals Standing Exercise Name D1 and D2 extension Resistance #3 t band Reps/Minutes 2x10 ER Standing Exercise Name t band Resistance #3 Reps/Minutes 2x10 rows Resistance #3 t band Reps/Minutes 2x10 PT-OP-R Modalities Start: 12/09/21 14:17 Freq: Status: Active Protocol: Document 02/15/22 07:30 AMB (Rec: 02/15/22 09:46 AMB [id number]) Electric Stimulation Electric Stimulation Interferential Current (IFC) Body Location R scapula Duration (Minutes) 15 Combined With Heat/Cold Hot Pack PT-OP-T Assessment and Plan Start: 11/18/21 07:35 Freq: Status: Active Protocol: Document 02/15/22 07:30 AMB (Rec: 02/15/22 08:25 AMB [id number]) Physical Therapy Assessment Goals Two Impairment Pain Short Term Goal (STG) Lesley will sit at her desk for 30 minutes without an increase in her baseline pain. STG Duration MET Comber Operator Goal (LTG) Lesley will be independent with a HEP for scapular strengthening and stretching to manage her pain in the chcf. LTG Duration MET One Impairment ROM Short Term Goal (STG) Lesley will improve her R shoulder AROM to 160 degrees. STG Duration equal to other side at 155 Fdc Goal (LTG) Lesley will have full R shoulder range without an increase in pain. LTG Duration 8 weeks Assessment Summary Assessment Pt is feeling better after last 5 weeks off of PT. 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 Not as worried about the elbow now that pain seems to be very related to exercise and better when she does her HEP. Physical Therapy Plan Frequency and Duration Frequency of Treatment 2x/Week Duration of Treatment 4 weeks Plan of Care Start Date 02/15/22 Plan of Care End Date 03/15/22 Therapeutic Interventions Therapeutic Interventions Home Exercise Program,Joint Mobilizations,Manual Therapy, Neuromuscular Re-education, Self-Care/Home Management, Therapeutic Activities, Therapeutic Exercises Modalities Cold Pack/Ice Massage,Electric Stimulation,Hot Packs, Ultrasound Next Visit Focus/Plan Next Note Type Treatment Note Next Visit Plan Finalize HEP
--- NOTE | 2022-02-25 08:54 | PT.OTN ---
Current Diagnoses Pain in right shoulder (02/25/22) Other specified disorders of muscle (02/25/22) Abnormal posture (02/25/22) Physical Therapy Treatment Note PT-OP-A Visit Information Start: 11/18/21 07:35 Freq: Status: Active Protocol: Document 02/25/22 07:33 AMB (Rec: 02/25/22 08:53 AMB [id number]) Out-Patient Physical Therapy Visit Information Visit Information Visit Type Treatment Note Visit Start Time 07:30 Visit Stop Time 08:15 Total Visit Minutes 45 Visit Number 12 PT-OP-B Current Condition Start: 11/18/21 07:35 Freq: Status: Active Protocol: Document 11/25/21 09:07 AMB (Rec: 11/25/21 09:21 AMB [id number]) Current Condition History of Current Condition Onset Date January 2021 Current Complaints R scapular pain that radiates into neck and down arm History of Current Condition 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 Pain goes down the whole arm. Chiropractic helped, but now pain is coming back. Pain is worst along lateral aspect. Plays violin. RHD. Can feel arm/hand pain randomly, but when at computer or when at the jet. Bringing arm in towards the body seems to be somewhat relieving. Sharp pain, deniess numbness/tingling/ burning. Lidocaine patches, takes about a day for the pain to calm down after flying the jet. 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 Reaching/lifting/sleeping does not necessarily increase the pain. 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 PT-OP-J Posture/Palpation/Skin Start: 11/18/21 07:35 Freq: Status: Active Protocol: Document 11/25/21 09:00 AMB (Rec: 11/25/21 10:50 AMB [id number]) Posture Evaluation Comments Posture Comments Rounded shoulders and increased scapular winging on the right Palpation Assessment Location One Palpation Location R scapula Palpation Findings Spasm,Muscle Guarding, Tenderness,Trigger Point Palpation Details Trigger point over supraspinatus and infraspinatus that refer down the arm PT-OP-K Range of Motion Start: 11/18/21 07:35 Freq: Status: Active Protocol: Document 11/25/21 09:00 AMB (Rec: 11/25/21 10:50 AMB [id number]) Shoulder Goniometric Range of Motion Shoulder Left Active Shoulder ROM WFL Yes Testing Position Sitting Flexion 160 Abduction 180 Right Active Testing Position Sitting Flexion 145 Abduction 180 PT-OP-M Strength Start: 11/18/21 07:35 Freq: Status: Active Protocol: Document 11/25/21 09:00 AMB (Rec: 11/25/21 10:50 AMB [id number]) Shoulder Strength Shoulder Manual Muscle Testing Right Flexion 4+ Good+ Extension 5 Normal Abduction (C5) 4+ Good+ External Rotation 4+ Good+ Internal Rotation 4+ Good+ Left Flexion 5 Normal Extension 5 Normal Abduction (C5) 5 Normal External Rotation 5 Normal Internal Rotation 5 Normal Hand Piccolo Mechanic/Pinch Strength Hand Dominance Hand Dominance Right Hand Strength Right Piccolo Mechanic (lbs) 50 Left Piccolo Mechanic (lbs) 50 PT-OP-Q Treatments Start: 11/18/21 07:35 Freq: Status: Active Protocol: Document 02/25/22 07:33 AMB (Rec: 02/25/22 08:53 AMB [id number]) Therapeutic Exercises Standing Exercises AROM Comments flex, ext, abd, IR, ER tricep stretch Reps/Minutes 30x3 PNF diagonals Standing Exercise Name D1 and D2 extension Resistance #4 t band Reps/Minutes 2x10 ER Standing Exercise Name t band Resistance #4 Reps/Minutes 2x10 Manual Therapy Treatment Soft Tissue Mobilization 2 Body Location triceps forearm, scap Mobilization Type Myofascial Release Comments PROM shoulder, elbow PT-OP-R Modalities Start: 12/09/21 14:17 Freq: Status: Active Protocol: Document 02/25/22 07:33 AMB (Rec: 02/25/22 08:53 AMB [id number]) Electric Stimulation Electric Stimulation Interferential Current (IFC) Body Location R scapula Duration (Minutes) 15 Combined With Heat/Cold Hot Pack PT-OP-T Assessment and Plan Start: 11/18/21 07:35 Freq: Status: Active Protocol: Document 02/25/22 07:33 AMB (Rec: 02/25/22 08:53 AMB [id number]) Physical Therapy Assessment Goals Two Impairment Pain Short Term Goal (STG) Lesley will sit at her desk for 30 minutes without an increase in her baseline pain. STG Duration MET Helicopter Repairer Goal (LTG) Lesley will be independent with a HEP for scapular strengthening and stretching to manage her pain in the retirement. LTG Duration MET One Impairment ROM Short Term Goal (STG) Lesley will improve her R shoulder AROM to 160 degrees. STG Duration equal to other side at 155 Mcc Goal (LTG) Lesley will have full R shoulder range without an increase in pain. LTG Duration PROGRESS MADE- some discomfort with flexion Assessment Summary Assessment Overall Lesley is feeling better, she feels like if she can be consistent with her exercises she will be able to get the arm/shoulder feeling better. 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
== END 2022-03-02 14:03 ==
LOC: PHYS 07:30
DX: M25.511 Pain in right shoulder (principal); M62.89 Other specified disorders of muscle; R29.3 Abnormal posture
CPT/HCPCS: 97014; 97110; 97140; 97161; G0283

== ENCOUNTER → 2024-02-24 06:45 | Outpatient (CLI) | payer OTHER, SELFPAY ==
--- NOTE | 2024-02-24 06:46 | DI.US.S_ITS ---
PROCEDURE: US PELVIC COMPLETE INDICATIONS: IUD CHECK TECHNIQUE: Real-time scanning was performed of the pelvic organs, with image documentation. Additional endovaginal scanning was necessary due to incomplete visualization of the adnexal and endometrial structures by transabdominal scanning. COMPARISON: None. FINDINGS: Uterus: Uterus is anteverted and normal in size at 6.1 x 4.7 x 3.3 cm. The myometrium is homogeneous. The endometrium measures 2 mm combined thickness. IUD centered in the endometrial cavity. Ovaries: The right ovary measures 2.8 x 1.6 x 1.5 cm, with a calculated ovarian volume of 4 cc. The left ovary measures 3.6 x 2.7 x 1.9 cm, with a calculated ovarian volume of 10 cc. The ovaries have a normal sonographic appearance. Less than 12 follicles can be seen in each ovary. No adnexal masses are seen. Other: No pathologic free abdominal or pelvic fluid. IMPRESSION: 1. IUD centered in the endometrial cavity. 2. No significant ovarian cysts. We strive to produce accurate, complete, and clear reports of imaging services. To assist us in improving patient care, this report was composed using standard report templates and voice recognition software. Therefore, it may contain abnormal punctuation, insertions and/or omissions. Occasional wrong-word or sound-alike substitutions may occur. Though we review the report and make efforts to correct it, we do recommend that the report be read carefully in proper context to recognize any text inaccuracies. Dictated by: Carlos Dominique M.D. on 02/24/2024 at 12:20 Approved by: Carlos Dominique M.D. on 02/24/2024 at 12:23
== END ==
PROVIDERS: Referring Provider Student in an Organized Health Care Education/Training Program; Visit Provider Student in an Organized Health Care Education/Training Program
DX: Z30.431 Encounter for routine checking of intrauterine contraceptive device (principal)
CPT/HCPCS: 76830; 76856

== ENCOUNTER → 2025-10-05 07:11 | Outpatient (CLI) | payer OTHER, SELFPAY ==
--- NOTE | 2025-10-05 | DI.MRI.S_ITS ---
PROCEDURE: MR CERVICAL SPINE WO CON
== END ==
LOC: MRI 07:12
PROVIDERS: Referring Provider Student in an Organized Health Care Education/Training Program; Visit Provider Student in an Organized Health Care Education/Training Program
DX: M47.22 Other spondylosis with radiculopathy, cervical region (principal); M50.121 Cervical disc disorder at C4-C5 level with radiculopathy; M48.02 Spinal stenosis, cervical region
CPT/HCPCS: 72141